=== PATIENT | female | born 1985 | race Two or more races ===

== ENCOUNTER 2021-05-19 00:03 | Emergency (ER) | payer OTHER ==
[~2021-05-19] VITALS: Ht 157.5 cm; Wt 54.4 kg
[2021-05-19] MEDS ORDERED: PEPCID AC20 MG PO (04:18)
== END 2021-05-19 04:43 | disposition home or self-care (01) ==
LOC: ER 00:03
DX: R07.89 Other chest pain (principal); F10.129 Alcohol abuse with intoxication, unspecified; F12.129 Cannabis abuse with intoxication, unspecified; F41.8 Other specified anxiety disorders